=== PATIENT | female | born 2000 ===

== ENCOUNTER 2022-08-17 13:26 | Emergency (ER) | payer SELFPAY ==
[~2022-08-17] VITALS: Ht 162.6 cm; Wt 47.4 kg
[2022-08-17 13:27] VITALS: BP 116/80
== END 2022-08-17 15:51 | disposition left against medical advice (07) ==
LOC: M ED 15:27
DX: Z53.21 Procedure and treatment not carried out due to patient leaving prior to being seen by health care provider (principal)